=== PATIENT | male | born 1990 | race Hispanic/Latino ===

== ENCOUNTER 2018-09-21 08:26 | Emergency (ER) | payer SELFPAY ==
[2018-09-21 08:29] VITALS: BMI 20.1
[2018-09-21 08:34] VITALS: BP 141/87; PULSE 103; RESP 20; TEMP 97.6; O2SAT 97
[2018-09-21] MEDS ORDERED: Tmp-Smz 800 mg-160 mg DS Tab PO STA (09:03)
--- NOTE | 2018-09-21 09:06 | C.PDOC ---
History Of Present Illness 27 y/o male with HIV CD4 count of 700 and on medication presents to ED with c/o left proximal to knee draining abscess for 5-6 weeks. Patient states he tried antibiotics 2 months ago with no improvement and has been applying warm compress with minimal relief. Patient denies fever, chills, nausea, vomiting or any other complaints at this time. Time Seen by Provider: 09/21/18 08:42 Chief Complaint (Nursing): Abnormal Skin Integrity History Per: Patient History/Exam Limitations: no limitations Onset/Duration Of Symptoms: Days Current Symptoms Are (Timing): Still Present Past Medical History Reviewed: Historical Data, Nursing Documentation, Vital Signs Vital Signs: Last Vital Signs Temp 97.6 F 09/21/18 08:30 Pulse 103 H 09/21/18 08:30 Resp 20 09/21/18 08:30 BP 141/87 09/21/18 08:30 Pulse Ox 97 09/21/18 08:30 - Medical History PMH: HIV Surgical History: No Surg Hx Family History: States: No Known Family Hx - Social History Hx Alcohol Use: Yes Hx Substance Use: No - Immunization History Hx Tetanus Toxoid Vaccination: No Hx Influenza Vaccination: No Hx Pneumococcal Vaccination: No Review Of Systems Constitutional: Negative for: Fever, Chills Cardiovascular: Negative for: Chest Pain Respiratory: Negative for: Cough Gastrointestinal: Negative for: Nausea, Vomiting Skin: Positive for: Other (abscess). Negative for: Rash Physical Exam - Physical Exam Appears: Non-toxic, No Acute Distress Skin: Warm, Dry, No Rash, Other (Dime sized open wound above left knee with scant discharge with mild surrounding erythema. no fluctuance) Head: Atraumatic, Normacephalic Eye(s): bilateral: Normal Inspection Oral Mucosa: Moist Neck: Normal ROM, Supple Cardiovascular: Rhythm Regular Respiratory: Normal Breath Sounds, No Rales, No Rhonchi, No Wheezing Gastrointestinal/Abdominal: Soft, No Tenderness, No Guarding, No Rebound Extremity: No Pedal Edema, Capillary Refill (<2 seconds) Neurological/Psych: Oriented x3, Normal Speech, Normal Cognition ED Course And Treatment O2 Sat by Pulse Oximetry: 97 (RA) Pulse Ox Interpretation: Normal Medical Decision Making Medical Decision Making: pt with persistent open wound s/p a 'popped' abscess 2 months ago, still open. tx with bactrim Disposition Counseled Patient/Family Regarding: Diagnosis, Need For Followup, Rx Given - Disposition Referrals: [facility] [Outside] Disposition: HOME/ ROUTINE Disposition Time: 09:09 Condition: GOOD Additional Instructions: Please keep wound clean and dry. Allow wound to air out when home to dry out and heal. Take antibiotics until completed. Follow up with your doctor or in medical clinic. Prescriptions: Sulfamethoxazole/Trimethoprim [Bactrim 400-80 mg Tablet] 1 each PO BID #14 tablet Instructions: Abscess Drainage, Percutaneous (DC) Forms: Vennli (Polish), General Discharge Instructions - Clinical Impression Clinical Impression: Abscess of leg, left - PA / [employer] / Resident Statement MD/DO has reviewed & agrees with the documentation as recorded. - Scribe Statement The provider has reviewed the documentation as recorded by the Savannaibiliana Irving All medical record entries made by the Ravindra were at my direction and personally dictated by me. I have reviewed the chart and agree that the record accurately reflects my personal performance of the history, physical exam, medical decision making, and the department course for this patient. I have also personally directed, reviewed, and agree with the discharge instructions and disposition.
[2018-09-21] MEDS ORDERED: Tmp-Smz 800 mg-160 mg DS Tab ONE (09:10)
== END 2018-09-21 09:26 | disposition home or self-care (01) ==
LOC: C.ER 08:26
DX: L02.416 Cutaneous abscess of left lower limb (principal)